=== PATIENT | male | born 1955 | race Caucasian/White ===

== ENCOUNTER → 2020-04-20 | Outpatient (CLI) | payer MEDICARE, MEDICAID ==
[~2020-04-20] MED LIST: ACET-2708 MT; LOSA50TA41 PO; METF-414 PO; SIMV10TA97 PO
== END | disposition home or self-care (01) ==
LOC: LAB 11:39
PROVIDERS: ATTEND Orthopaedic Surgery
DX: Z01.818 Encounter for other preprocedural examination (principal); M17.11 Unilateral primary osteoarthritis, right knee; Z11.59 Encounter for screening for other viral diseases
CPT/HCPCS: C9803; U0003

== ENCOUNTER 2020-04-24 07:07 | Inpatient (IN) | payer MEDICARE, MEDICAID ==
[~2020-04-24] VITALS: Ht 167.6 cm; Wt 79.8 kg
[2020-04-24 07:55] LABS: PARTIAL THROMBOPLASTIN TIME 33.6 sec (23.4-31.0); PROTHROMBIN TIME 10.9 sec (9.6-11.0)
[2020-04-24] MEDS ORDERED: SODIUM CHLORIDE 0.9% 1,000 ML IV SCH (08:00)
[2020-04-24] MEDS ORDERED: FENTANYL CITRATE/PF 50MCG/ML 2ML VIAL ONE (08:18)
[2020-04-24 08:19] LABS: CLARITY URINE CLEAR (CLEAR); COLOR URINE YELLOW (YELLOW); KETONES URINE NEGATIVE (NEGATIVE); LEUKOCYTE ESTERASE URINE NEGATIVE (NEGATIVE); NITRITE URINE NEGATIVE (NEGATIVE); OCCULT BLOOD URINE NEGATIVE (NEGATIVE); PROTEIN URINE NEGATIVE (NEGATIVE); UROBILINOGEN URINE 0.2 E.U./dL (0.2-1.0)
[2020-04-24] MEDS ORDERED: MIDAZOLAM HCL 2 MG/2 ML VIAL ONE (08:19)
[2020-04-24] MEDS ORDERED: ONDANSETRON HCL 4MG/2ML INJ ONE (08:20)
[2020-04-24] MEDS ORDERED: MORPHINE SULFATE/PF 1MG/ML 10ML AMP ONE (08:26)
[2020-04-24] MEDS ORDERED: BACITRACIN 15GM TUBE TOP ONE (08:27)
[2020-04-24] MEDS ORDERED: BUPIVACAINE/EPINEPH/PF 0.25%/0.0005 10ML ONE ×2 (08:27→10:13)
[2020-04-24] MEDS ORDERED: BACITRACIN 50,000 UNITS/VIAL ONE (08:27)
[2020-04-24] MEDS ORDERED: SKIN ADHESIVE 0.7 GM EA TOP ONE (08:27)
[2020-04-24] MEDS ORDERED: VANCOMYCIN HCL 1 GM/VIAL ONE (08:27)
[2020-04-24] MEDS ORDERED: NORMAL SALINE 0.9% 10 ML SYR ONE (08:27)
[2020-04-24] MEDS ORDERED: MAGNESIUM HYDROXIDE 400MG/5ML 30ML UDC PO PRN (09:00)
[2020-04-24] MEDS ORDERED: ONDANSETRON HCL 4MG/2ML INJ IV PRN (09:00)
[2020-04-24] MEDS ORDERED: ACETAMINOPHEN 325MG TABLET PO PRN (09:00)
[2020-04-24] MEDS ORDERED: BUPIVACAINE HCL/DEXTROSE/PF 0.75% 2ML AMP INJ ONE (09:14)
[2020-04-24] MEDS ORDERED: PROPOFOL 10MG/ML 100ML 100 ML IV ONE (09:14)
[2020-04-24] MEDS ORDERED: ROPIVACAINE HCL 10MG/ML 20 ML VIAL EPI ONE (09:15)
[2020-04-24] MEDS ORDERED: TRANEXAMIC ACID 1,000 MG in SODIUM CHLORIDE 0.9% 100 ML IV NR (09:15)
[2020-04-24] MEDS ORDERED: PROPOFOL 200MG/20ML VIAL IV ONE (09:53)
[2020-04-24] MEDS ORDERED: METHYLENE BLUE 50 MG/10 ML AMP IV ONE (10:13)
[2020-04-24] MEDS ORDERED: HYDROMORPHONE HCL/PF 2MG/ML (OR) ONE (10:28)
[2020-04-24] MEDS ORDERED: GENTAMICIN SULF 40MG/ML 2ML VIAL ONE (11:28)
[2020-04-24] MEDS ORDERED: EPINEPHRINE 1:1000 1 MG/ML AMP ONE (12:00)
[2020-04-24] MEDS ORDERED: ONDANSETRON INJ IV PRN (14:30)
[2020-04-24] MEDS ORDERED: NALOXONE INJ IV PRN (14:30)
[2020-04-24] MEDS ORDERED: DIPHENHYDRAMINE INJ IV PRN (14:30)
[2020-04-24] MEDS ORDERED: HYDROMORPHONE PCA 10MG/50ML IV PRN (14:30)
[2020-04-24] MEDS ORDERED: HYDROMORPHONE PCA 50 ML IV ONE (14:30)
[2020-04-24 15:45] VITALS: BP 141/69
[2020-04-24 16:00] VITALS: BP 141/69
[2020-04-24] MEDS: BLOOD SUGAR DIAGNOSTIC STRIP TEST SCH ×2 (17:20→21:15)
[2020-04-24] MEDS ORDERED: DEXTROSE 50% WATER 50ML SYRINGE IV PRN (17:30)
[2020-04-24] MEDS: CEFAZOLIN 2,000 MG in DEXT 5% WATER 100 ML IV SCH (17:33)
[2020-04-24] MEDS: DOCUSATE SODIUM 100MG CAPSULE PO SCH (17:33)
[2020-04-24] MEDS: INSULIN LISPRO 100 UNITS/ML SUBCUT SCH ×2 (17:50→21:27)
[2020-04-24] MEDS ORDERED: ZOLPIDEM TARTRATE 5MG TABLET PO PRN (18:00)
[2020-04-24 18:17] LABS: HEMATOCRIT. 34.1 % (42.0-52.0); HEMOGLOBIN. 11.2 g/dL (14.0-18.0); MEAN CORPUSCULAR HEMOGLOBIN 23.5 pg (28.0-32.0); MEAN CORPUSCULAR VOLUME 71.2 fL (80.0-94.0); MEAN PLATELET VOLUME 8.2 fl (7.4-10.4); PLATELET 257 x1000/uL (130-400); RED BLOOD CELL COUNT 4.79 mill/uL (4.7-6.1); RED CELL DISTRIBUTION WIDTH 14.8 % (11.6-14.6)
[2020-04-24 18:32] LABS: CHLORIDE 106 mEq/L (98-107)
[2020-04-24 19:17] LABS: PLATELET ESTIMATE NORMAL
[2020-04-24 20:00] VITALS: BP 122/62
[2020-04-25] VITALS: BP 139/73
[2020-04-25] MEDS ORDERED: DIPHENHYDRAMINE 50MG/ML VIAL IV PRN (00:15)
[2020-04-25] MEDS: DIPHENHYDRAMINE 50MG/ML VIAL IM PRN ×2 (00:27→06:42)
[2020-04-25] MEDS: CEFAZOLIN 2,000 MG in DEXT 5% WATER 100 ML IV SCH (01:10)
[2020-04-25 04:00] VITALS: BP 135/68
[2020-04-25 07:02] LABS: BASOPHILS % 0.2 % (0.0-2.0); EOSINOPHILS % 0.1 % (0.0-5.0); HEMATOCRIT. 31.4 % (42.0-52.0); HEMOGLOBIN. 10.3 g/dL (14.0-18.0); LYMPHOCYTES % 11.1 % (20.0-50.0); MEAN CORPUSCULAR HEMOGLOBIN 23.4 pg (28.0-32.0); MEAN PLATELET VOLUME 8.6 fl (7.4-10.4); MONOCYTES % 9.4 % (2.0-8.0); NEUTROPHILS % 79.2 % (40.0-76.0); PLATELET 261 x1000/uL (130-400); RED BLOOD CELL COUNT 4.42 mill/uL (4.7-6.1); RED CELL DISTRIBUTION WIDTH 14.9 % (11.6-14.6)
[2020-04-25 07:04] LABS: CHLORIDE 101 mEq/L (98-107)
[2020-04-25] MEDS: BLOOD SUGAR DIAGNOSTIC STRIP TEST SCH ×4 (07:27→20:06)
[2020-04-25] MEDS: INSULIN LISPRO 100 UNITS/ML SUBCUT SCH ×4 (07:30→20:06)
[2020-04-25 08:00] VITALS: BP 133/67
[2020-04-25] MEDS: DOCUSATE SODIUM 100MG CAPSULE PO SCH ×2 (08:37→17:34)
[2020-04-25] MEDS: ENOXAPARIN 30MG/0.3ML SYR SUBCUT SCH ×2 (08:37→20:06)
[2020-04-25 12:00] VITALS: BP 147/62
[2020-04-25 16:00] VITALS: BP 145/63
[2020-04-25] MEDS: HYDROCODONE/ACETAMINOPHEN 10/325MG TABLET PO PRN ×2 (17:35→23:37)
[2020-04-25 20:00] VITALS: BP 140/70
[2020-04-26] VITALS: BP_SYST 108; BP_SYST 148; BP_DIAS 65
[2020-04-26 04:00] VITALS: BP 132/68
[2020-04-26] MEDS: HYDROCODONE/ACETAMINOPHEN 10/325MG TABLET PO PRN ×3 (05:16→13:44)
[2020-04-26 06:21] LABS: CHLORIDE 98 mEq/L (98-107)
[2020-04-26] MEDS: BLOOD SUGAR DIAGNOSTIC STRIP TEST SCH ×2 (06:37→12:07)
[2020-04-26] MEDS: INSULIN LISPRO 100 UNITS/ML SUBCUT SCH ×2 (07:20→12:07)
[2020-04-26 07:37] LABS: BASOPHILS % 0.5 % (0.0-2.0); EOSINOPHILS % 1.1 % (0.0-5.0); HEMATOCRIT. 31.1 % (42.0-52.0); HEMOGLOBIN. 10.2 g/dL (14.0-18.0); MEAN CORPUSCULAR HEMOGLOBIN 23.6 pg (28.0-32.0); MEAN CORPUSCULAR VOLUME 71.6 fL (80.0-94.0); MEAN PLATELET VOLUME 8.8 fl (7.4-10.4); MONOCYTES % 10.2 % (2.0-8.0); NEUTROPHILS % 69.2 % (40.0-76.0); PLATELET 263 x1000/uL (130-400); RED BLOOD CELL COUNT 4.34 mill/uL (4.7-6.1); RED CELL DISTRIBUTION WIDTH 14.7 % (11.6-14.6)
[2020-04-26 08:00] VITALS: BP 142/70
[2020-04-26] MEDS: DOCUSATE SODIUM 100MG CAPSULE PO SCH (09:04)
[2020-04-26] MEDS: ENOXAPARIN 30MG/0.3ML SYR SUBCUT SCH (09:04)
[2020-04-26 12:00] VITALS: BP 105/51
[2020-04-26 14:42] VITALS: BP 119/78
== END 2020-04-26 15:17 | disposition home health service (06) | DRG 470 ==
LOC: OR 07:07 → 6EST 07:08
PROVIDERS: ADMIT Orthopaedic Surgery; ATTEND Orthopaedic Surgery
PROC: 0SRC0J9 Replacement of Right Knee Joint with Synthetic Substitute, Cemented, Open Approach (ICD-10-PCS; principal; 2020-04-24)
DX: M17.11 Unilateral primary osteoarthritis, right knee (principal); I10 Essential (primary) hypertension; E78.5 Hyperlipidemia, unspecified; M21.061 Valgus deformity, not elsewhere classified, right knee; M65.861 Other synovitis and tenosynovitis, right lower leg; E11.9 Type 2 diabetes mellitus without complications; E66.3 Overweight; Z68.28 Body mass index [BMI] 28.0-28.9, adult; Z90.49 Acquired absence of other specified parts of digestive tract
CPT/HCPCS: 36415; 73560; 80048; 81003; 82962; 85025; 86850; 86900; 88305; 88311; 97110; 97116; 97162; 97166; 97530; 97535; C1713; C1776; J0171; J0690; J1170; J1200; J1580; J1650; J1815; J2250; J2274; J2405; J2704; J2795; J3010; J3370; J3490; J7050; J7060; L1830; Q9968